=== PATIENT | female | born 1980 | race Caucasian/White ===

== ENCOUNTER → 2019-06-05 | Outpatient (CLI) | payer OTHER ==
[~2019-06-05] MED LIST: FLEXERIL PO; NEURONTIN 300300 M1 PO; PERCOCET PO; SYNTHROID200 MCG PO
== END ==
LOC: M.PC 13:54
DX: M47.22 Other spondylosis with radiculopathy, cervical region (principal); M50.10 Cervical disc disorder with radiculopathy, unspecified cervical region; M25.511 Pain in right shoulder; G89.29 Other chronic pain

== ENCOUNTER → 2019-06-13 | Outpatient (CLI) | payer OTHER | LOC: M.MRI 13:07 | DX: M50.11 Cervical disc disorder with radiculopathy, high cervical region (principal); M46.02 Spinal enthesopathy, cervical region; M48.02 Spinal stenosis, cervical region; M47.22 Other spondylosis with radiculopathy, cervical region ==

== ENCOUNTER → 2019-06-19 | Outpatient (CLI) | payer OTHER | END | disposition home or self-care (01) | LOC: M.PC 05:49 | DX: M50.10 Cervical disc disorder with radiculopathy, unspecified cervical region (principal); M47.22 Other spondylosis with radiculopathy, cervical region; Z98.890 Other specified postprocedural states; Z79.899 Other long term (current) drug therapy ==

== ENCOUNTER → 2019-07-03 | Outpatient (CLI) | payer OTHER | END | disposition home or self-care (01) | LOC: M.PC 05:18 | DX: M50.10 Cervical disc disorder with radiculopathy, unspecified cervical region (principal); M47.22 Other spondylosis with radiculopathy, cervical region; G89.29 Other chronic pain; M25.511 Pain in right shoulder; Z98.890 Other specified postprocedural states; Z79.899 Other long term (current) drug therapy ==